=== PATIENT | male | born 1980 | race Caucasian/White ===

== ENCOUNTER 2021-01-12 18:09 | Emergency (ER) | payer BC ==
[~2021-01-12] VITALS: Ht 188 cm; Wt 132.2 kg
--- NOTE | 2021-01-12 18:17 | PHYS DOC ---
General Adult EDM: Chief Complaint: FOREIGN BODY HPI: HPI: ".. I was eating ribs.. and it got stuck in my throat.. I ve had this happen before.. ."... " It been about 2 hours.. ".. " I can 't swallow my spit.. " "I have tried vomiting I tried everything it just will not go up or down.. " When this happened before I was to follow-up and get a dilation but I never did..." Patient is a 40 year old male who presents with above hx and complaints of bolus of rib meat and cartilage stuck in his esophagus. Patient put its at approximately at T6 level.. Patient still unable to swallow his sputum. Patient states he normally follows a [facility] or [facility]. Patient and elected to come here because of the his marked distress. Calls placed to GI at [place] and boring machine operator [facility]. No callback. Patient and requesting transfer to [facility]. Did call Dr. Gómez at [facility] but there is no current on-call GI available immediately for EGD. [facility] did call back and arrange for follow-up at [facility] or [facility] to see Dr. Jasiel jewell in the emergency department. and patient declining ambulance transfer. Aware of risks. While waiting for for callbacks patient did receive 1 mg of glucagon IV. Patient food but is apparently resolved. Prior to his discharge here. Patient encouraged to follow-up with GI and obtain an EGD and possible esophageal dilation. Given name of Dr. Moralez per their request. Patient return if any concerns. Soft diet tonight. Review of Systems: Review of Systems: Constitutional: Denies fever or chills Eyes: Denies change in visual acuity HENT: Denies nasal congestion or sore throat Respiratory: Denies cough or shortness of breath Cardiovascular: Denies chest pain or edema GI: Denies abdominal pain, bloody stools or diarrhea . Complains of food bolus stuck in his esophagus with pain, nausea and vomiting : Denies dysuria Musculoskeletal: Denies back pain or joint pain Integument: Denies rash Neurologic: Denies headache, focal weakness or sensory changes Endocrine: Denies polyuria or polydipsia Lymphatic: Denies swollen glands Psychiatric: Denies depression or anxiety Family History: Family History: Noncontributory Current Medications: Current Meds: See nursing for home meds Allergies: Allergies: Allergies Coded Allergies Type Severity Reaction Last Updated Verified No Known Drug Allergies 01/12/21 No Physical Exam: PE: Constitutional: Well developed, well nourished, in severe acute distress, non- toxic appearance. [] HENT: Normocephalic, atraumatic, bilateral external ears normal, oropharynx moist, no oral exudates, nose normal. [] Eyes: PERRLA, EOMI, conjunctiva normal, no discharge. [] Neck: Normal range of motion, no tenderness, supple, no stridor. [] Cardiovascular:Heart rate regular rhythm, no murmur [] Lungs & Thorax: Bilateral breath sounds equal at apex auscultation []. Has chest pain at T6 level sternal area Abdomen: Bowel sounds normal, soft, no tenderness, no masses, no pulsatile masses. [] Skin: Warm, dry, no erythema, no rash. [] Back: No tenderness, no CVA tenderness. [] Extremities: No tenderness, no cyanosis, no clubbing, ROM intact, no edema. [] Neurologic: Alert and oriented X 3, normal motor function, normal sensory function, no focal deficits noted. [] Psychologic: Affect anxious, judgement normal, mood normal. [] Current Patient Data: Labs: Patient declined labs EKG: EKG: Patient declined [] Radiology/Procedures: Radiology/Procedures: Patient declined [] Heart Score: Risk Factors: Risk Factors: DM, Current or recent (<one month) smoker, HTN, HLP, family history of CAD, obesity. Risk Scores: Score 0 - 3: 2.5% MACE over next 6 weeks - Discharge Home Score 4 - 6: 20.3% MACE over next 6 weeks - Admit for Clinical Observation Score 7 - 10: 72.7% MACE over next 6 weeks - Early Invasive Strategies Course & Med Decision Making: Course & Med Decision Making Pertinent Labs and Imaging studies reviewed. (See chart for details) Calls made to GI boring machine operator [facility].-Answering service advised they were unable to contact Dr. Martínez Calls made to [facility]-Per patient's request. Did discuss with Dr. Gómez. No current emergent GI specialist available at [facility] but recommended follow-up with Dr. Moralez at [facility] or [facility] in the emergency department. Patient initially reluctant to try IV glucagon-stated it did not work on his last food bolus. Patient did allow us to eventually give 1 mg. of glucagon. Patient did have clearing of bolus with 1 mg of glucagon IV, Recommend patient keep his follow-up with GI and complete his EGD with possible esophageal dilation. Soft diet tonight. Return if any concerns. Dr. Martínez did return call at 1943 hrs. Impression: 1. Lodged food bolus esophagus [] Dragon Disclaimer: Dragon Disclaimer: This electronic medical record was generated, in whole or in part, using a voice recognition dictation system. Departure Departure: Referrals: SARMAD SCHWAB MD (PCP) Scripts Famotidine (PEPCID) 20 Mg Tablet 1 TAB PO BID for reflux, #60 TAB 3 Refills Prov: DINORA PEOPLES MD 01/12/21 Dragon Disclaimer This chart was dictated in whole or in part using Voice Recognition software in a busy, high-work load, and often noisy Emergency Department environment. It ma y contain unintended and wholly unrecognized errors or omissions. Dragon Disclaimer This chart was dictated in whole or in part using Voice Recognition software in a busy, high-work load, and often noisy Emergency Department environment. It may contain unintended and wholly unrecognized errors or omissions. DINORA PEOPLES MD Jan 12, 2021 18:17
[2021-01-12 19:00] VITALS: BP 165/109
[2021-01-12] MEDS ORDERED: ONDANSETRON PF 4 MG/2 ML VIAL. ONE (19:23)
[2021-01-12] MEDS ORDERED: ONDANSETRON PF 4 MG/2 ML VIAL. IVP ONE (19:30)
[2021-01-12] MEDS ORDERED: GLUCAGON,HUMAN RECOMBINANT 1 MG KIT. IV ONE (19:30)
[2021-01-12] MEDS ORDERED: FAMO-63 PO (19:59)
== END 2021-01-12 20:05 | disposition home or self-care (01) ==
LOC: ER 18:09
DX: T18.128A Food in esophagus causing other injury, initial encounter (principal); X58.XXXA Exposure to other specified factors, initial encounter; Y93.89 Activity, other specified; Y92.89 Other specified places as the place of occurrence of the external cause; Y99.8 Other external cause status
CPT/HCPCS: 96374; 96375; 99284; J1610; J2405